=== PATIENT | male | born 1980 | race Caucasian/White ===

== ENCOUNTER 2025-04-06 16:20 | Emergency (ER) | payer OTHER, SELFPAY ==
--- OUTSIDE RECORDS SUMMARY | 2016-01-09 08:00 | XMS_ITS | Continuity of Care Document ---
Author Organization [facility] Address [address] [place] [address] Phone Care Team Providers Care Watershed Coordinator Name Role Phone Zelalem CALDWELL, Radha Unavailable Unavailable Allergies, Adverse Reactions, Alerts Substance Reaction Status Criticality No Known Allergies Active No Inform ation Medications Medication Instructions Dosage Effective Dates (start - stop) Status Comments Compazine 25 mg rectal suppository insert 1 suppository by rectal route every 6 hours as needed nausea - No Longer Active dicyclomine 10 mg capsule take 1 capsule by oral route 2- 3 times every day as needed cramps - No Longer Active Cymbalta 30 mg capsule,delayed release take 1 capsule by oral route every day 30 MG - No Longer Active Advance Directives Directive Yes / No Effective Date File Name No Information Encounters Encounter Description Practice Location Reason(s) For Visit Diagnoses Date Provider Providers Copied on Encounter [facility], [address], [place], [place], [id number] , tel: [phone] [facility] StressIrritable bowel syndrome with diarrhea 6 Zelalem Radha. [address] [address] , [facility] [address], [place], [place], [address] . tel: [phone] Referring Provider: Grayson Torres, [address] [place] [address] [address], [place], [address] . tel:[phone] [facility], [address], [place], [place], [address] , tel: [phone] [facility] Irritable bowel syndrome without diarrhea 6 Zelalem Radha. [address] [address] , [facility] [address], [place], [place], [address] . tel: [phone] Referring Provider: Grayson Torres, [id number] [place] [address] [address], [place], [address] . tel:[phone] [facility], [address], [place], [place], [address] , [place] tel: [phone] [facility] No Information Apr-2 6 Oedtte Cox. [address] [place] [address], [id number] , [place]. tel: [phone] [facility], [address], [place], [place], [id number] , [place] tel: [phone] [facility] Diarrhea Apr- 6 Odette Cox. [address] [place] [address], [id number] , [place]. tel: [phone] Referring Provider: Brooke Mercer, [address] [place] [address], [address] . tel:[phone] [facility], [address], [place], [place], [address] , [place] tel: [phone] [facility] Chronic diarrheaBlood in stoolGeneralized abdominal painNausea and vomiting, unspecified intactability, vomiting of unspecified typeDepression with anxiety Apr-0 6 Odette Cox. [address] [place] [address], [id number] , [place]. tel: [phone] Referring Provider: Brooke Mercer, [address] [place] [address], [address] . tel:[phone] [facility], [address], [place], [place], [address] , [place] tel: [phone] [facility] Irritable bowel syndrome with diarrheaNicotine dependence, other tobacco product, uncomplicatedGastr o-esophageal reflux disease with esophagitisAbdomin al pain, epigastricPersonal history of exposure to leadScreening for cholesterol levelAcute dermatitisCough Apr-0 6 Zelalem Garcia. [address] [place] [address], [address], [place], [place], [address] . tel: [phone] Referring Provider: Grayson Torres, [address] [facility] [address], [place], [address] . tel:[phone] [facility], [address], [place], [place], [address] , tel: [phone] [facility] BACKACHE NOSIRRITABLE BOWEL SYNDROME 4 Zainab Mccabe. [address] [facility], [address], [place], [place], [address] , . tel: [phone] Family History Family Member Type Diagnosis Age At Onset Brother Problem (finding) migraine Father Problem (finding) raised blood lipids Sister Problem (finding) Eczema Mother Problem (finding) Irritable bowel disease Mother Problem (finding) Allergies Mother Problem (finding) Hearing impairment Mother Problem (finding) hypertension Brother Problem (finding) Irritable bowel disease Sister Problem (finding) migraine Sister Problem (finding) depression Mother Problem (finding) raised blood lipids Sister Problem (finding) Allergies Father Problem (finding) hypertension Sister Problem (finding) asthma Mother Problem (finding) osteoporosis Father Problem (finding) Hearing impairment Sister Problem (finding) Irritable bowel disease Father Problem (finding) premature coronary hear t disease Brother Problem (finding) Hearing impairment Mother Problem (finding) depression Payers Payer name Insurance type Covered constitution party ID Najma stephenson(s) [facility] [id number] Social History Type Description Quantity Date Captured Comments Alcohol Use Details No Caffeine Use Details coffee 3 cups per day Tobacco Use Status Smoking Status Heavy tobacco smoker Sex Male Vital Signs Date / Time: Height Weight BMI Pulse Rate Blood Pressure Temperature Respiratory Rate Body Surface Area Head Circumference Head Circ. Percentile Wt./Benjy. Percentile BMI percentile Pulse Ox Inhaled Ox 12:48 PM 68.674 kg (151.40 lbs) 100 /min 130/72 mm[Hg] 99.50 F Chief Complaint And Reason For Visit No Information Reason For Referral Reason For Referral No Information Plan Of Treatment Date Type Action Status Patient Education Diet for Irritable Monse l Syndrome: Car completed History Of Present Illness Encounter Date Complaint History Of Prese nt Illness No Information Functional Status Date Functional Assessmen t No Information Instructions Date Instruction Additional Infor mation No Information Assessments Type Assessment Date No Information Patient Care Teams Name Effective Dates (start - stop) Status Members No Information
--- OUTSIDE RECORDS SUMMARY | 2016-01-09 08:00 | XMS_ITS | Continuity of Care Document ---
Author Organization [facility] Address [address] [place] [address] Phone Care Team Providers Care Field Artillery Targeting Technician Name Role Phone Zelalem CALDWELL, Radha Unavailable [...] Diagnoses Date Provider Providers Copied on Encounter [facility], [address], [place], [place], [address] , tel: [phone] [facility] StressIrritable bowel syndrome with diarrhea 6 Zelalem Radha. [address] [address] , [facility] [address], [place], [place], [address] . tel: [phone] Referring Provider: Grayson Torres, [address] [place] [address] [address], [place], [address] . tel:[phone] [facility], [address], [place], [place], [address] , tel: [phone] [facility] Irritable bowel syndrome without diarrhea 6 Zelalem Radha. [address] [address] , [facility] [address], [place], [place], [address] . tel: [phone] Referring Provider: Grayson Torres, [address] [place] [address] [address], [place], [address] . tel:[phone] [facility], [address], [place], [place], [address] , [place] tel: [phone] [facility] No Information Apr-2 6 Odette Cox. [address] [place] [address], [id number] , [place]. tel: [phone] [facility], [address], [place], [place], [address] , [place] tel: [phone] [facility] Diarrhea Apr- 6 Odette Cox. [address] [place] [address], [id number] , [place]. tel: [phone] Referring Provider: Brooke Mercer, [address] [place] [address], [address] . tel:[phone] [facility], [address], [place], [place], [address] , [place] tel: [phone] [facility] Chronic diarrheaBlood in stoolGeneralized abdominal painNausea and vomiting, unspecified intactability, vomiting of unspecified typeDepression with anxiety Apr-0 6 Odette Cox. [address] [place] [address], [id number] , [place]. tel: [phone] Referring Provider: Brooke Mercer, [address] [place] [address], [address] . tel:[phone] [facility], [address], [place], [place], [address] , [place] tel: [phone] [facility] Irritable bowel syndrome with diarrheaNicotine dependence, other tobacco product, uncomplicatedGastr o-esophageal reflux disease with esophagitisAbdomin al pain, epigastricPersonal history of exposure to leadScreening for cholesterol levelAcute dermatitisCough Apr-0 6 Zelalem Garcia. [address] [place] [address], [address], [place], [place], [address] . tel: [phone] Referring Provider: Grayson Torres, [address] [facility] [address], [place], [address] . tel:[phone] [facility], [address], [place], [place], [address] , tel: [phone] [facility] BACKACHE NOSIRRITABLE BOWEL SYNDROME 4 Zainab Mccabe. [address] [facility], [address], [place], [place], [address] , . tel: [phone] Family History Family Member Type Diagnosis Age [...] depression Payers Payer name Insurance type Covered green party ID Najma stephenson(s) [facility] [id number] Social History Type Description Quantity Date Captured [...]
[2025-04-06 16:31] VITALS: BP 158/105; PULSE 95; RESP 18; TEMP 36.9; O2SAT 100
--- NOTE | 2025-04-06 17:14 | ED_ITS ---
HPI - General Adult General Chief complaint: Eye Problems Stated complaint: Right Eye Problem Source: patient Mode of arrival: ambulatory Limitations: no limitations History of Present Illness HPI narrative: Patient presents for evaluation of a stye to the right lower eyelid. He indicates he accidentally got latex paint his right eye 2 days ago. He was able to irrigate the eye but developed a stye thereafter. He has been rubbing the eye and now has some swelling and bruising to the right lower lid. He denies visual disturbance and sensation of foreign body in the eye. He has noted some thick yellow discharge from the stye. He has applied warm compresses but states symptoms persist. Related Data Home Medications ?Medication ?Instructions ?Recorded ?Confirmed ?Last Taken ?Type dicyclomine 20 mg tablet mg 04/06/25 Unknown History docusate sodium 250 mg capsule mg PO 04/06/25 Unknown History folic acid 1 mg tablet 04/06/25 Unknown History metoprolol succinate 50 mg mg PO 04/06/25 Unknown His tory tablet,extended release 24 hr tramadol 50 mg tablet mg 04/06/25 Unknown History Allergies Allergy/AdvReac Type Severity Reaction Status Date / Time No Known Allergies Allergy Verified 04/06/25 16:32 Review of Systems Review of Systems: CONSTITUTIONAL: Denies fever, chills, or sweats. EYES: Reports swelling to right lower lid with thick yellow drainage. Denies visual changes, redness ENT: Denies rhinorrhea, congestion, sore throat, or otalgia. CARDIOVASCULAR: Denies chest pain, palpitations, or edema. RESPIRATORY: Denies cough or dyspnea. GASTROINTESTINAL: Denies abdominal pain, nausea, vomiting, or diarrhea. GENITOURINARY: Denies dysuria or hematuria. SKIN: Reports bruising to the right lower eyelid MUSCULOSKELETAL: Denies back pain, joint pain, or myalgia. NEUROLOGIC: Denies headache, numbness, dizziness, or weakness. PSYCHIATRIC: Denies anxiety or depression. [facility] Past Medical History Medical History No pertinent past medical history Surgical History Surgical History No pertinent past surgical history Family History Family History Mother Family history non-contributory Social History Social History Smoking packs per day: 1.5 Smoking cigarettes per day: 30.0 Smoking status: Current every day smoker Tobacco type: cigarettes Alcohol intake: current Alcohol use details: 4 drinks per day Additional occupation/education comments: furnace mechanic Gender identity (if verbalized by the patient): Male Spiritual care concerns: No Exam Narrative: GENERAL: Well-appearing, well-nourished, and in no acute distress. HEAD: Normocephalic, atraumatic. EYES: PERRLA and EOMI. There is a stye noted to the inner aspect of the right lower eyelid ENT: Nares clear, no rhinorrhea or epistaxis. Mucous membranes moist. Oropharynx without tonsillar hypertrophy exudate or other lesions. Bilateral TMs pearly morrow nonbulging NECK: Supple. No adenopathy or masses. No carotid bruits or JVD CHEST: Clear to auscultation. No respiratory distress. No wheezes rales or rhonchi HEART: Regular rate and rhythm. No murmur heard. Normal peripheral pulses. ABDOMEN: Soft, nontender, nondistended, normal active bowel sounds. EXTREMITIES: Normal range of motion. No edema. SKIN: There is mild ecchymosis noted to the right lower eyelid NEURO: No focal deficits. Alert and oriented x3. PSYCH: Normal mood and affect. Course Course Emergency Course: This is a 44-year-old male who presented for evaluation of a stye to the right lower inner eyelid. He is already applying warm compresses. Will add erythromycin. Follow-up with primary provider. Go to the ER for worsening symptoms or visual disturbance. Patient in agreement with plan of care. Level of Care: Express Care Visit Vital Signs Vital signs: Vital Signs Temperature 36.9 C 04/06/25 16:31 Pulse Rate 95 04/06/25 16:31 Respiratory Rate 18 04/06/25 16:31 Blood Pressure 158/105 H 04/06/25 16:31 Pulse Oximetry 100 04/06/25 16:31 Oxygen Delivery Room Air 04/06/25 16:31 Temperature 36.9 C 04/06/25 16:31 Pulse Rate 95 04/06/25 16:31 Respiratory Rate 18 04/06/25 16:31 Blood Pressure 158/105 H 04/06/25 16:31 Pulse Oximetry 100 04/06/25 16:31 Oxygen Delivery Room Air 04/06/25 16:31 Medical Decision Making Vital Signs Vital Signs: Vital Signs Temperature 36.9 C 04/06/25 16:31 Pulse Rate 95 04/06/25 16:31 Respiratory Rate 18 04/06/25 16:31 Blood Pressure 158/105 H 04/06/25 16:31 Pulse Oximetry 100 04/06/25 16:31 Oxygen Delivery Room Air 04/06/25 16:31 Temperature 36.9 C 04/06/25 16:31 Pulse Rate 95 04/06/25 16:31 Respiratory Rate 18 04/06/25 16:31 Blood Pressure 158/105 H 04/06/25 16:31 Pulse Oximetry 100 04/06/25 16:31 Oxygen Delivery Room Air 04/06/25 16:31 Discharge Plan Discharge Clinical Impression: Hordeolum Qualifiers: Hordeolum type: internum Laterality: right Eyelid: lower Qualified Code(s): H00.022 - Hordeolum internum right lower eyelid Patient Disposition: Home Condition: Stable Instructions: Antibiotic Kelly Allan (ED) Patient Language: Polish Prescriptions: New erythromycin 5 mg/gram (0.5 %) ointment 0.5 inch EACH EYE QID Qty: 3.5 0RF No Action metoprolol succinate 50 mg tablet extended release 24 hr PO tramadol 50 mg tablet dicyclomine 20 mg tablet folic acid 1 mg tablet docusate sodium 250 mg capsule PO Follow-up/Referrals: Mick,Reji Wilson MD [Primary Care Provider, Unknown] Time of Disposition: 17:13
--- OUTSIDE RECORDS SUMMARY | 2025-04-06 17:17 | XMS_ITS | Encounter Summary ---
Author Organization [facility] [employer] Care Team Providers Care Environmental Director Name Role Phone Reji Barton MD Primary Care Provider [phone] Eddi Miller MD Unavailable Bridger Gilliam MD Unavailable Encounter Details Date Type Department Care Team (Latest Contact Info) Description 04/05/2025 Travel Social History Tobacco Use Types Packs/Day Years Used Date Smoking Tobacco: Every Day Cigarettes 1.5 31.7 Started: 1993 Smokeless Tobacco: Never Alcohol Use Standard Drinks/Week Comments Yes 70 (1 standard drink = 0.6 oz pu re alcohol) [employer] [facility] LOAGities Answer Date Recorded In the past 12 months has e electric, gas, oil, or water company threatened to shut off services in your home? No 02/19/2024 Social Connection and Isolation Panel Answer Date Recorded In a typical week, how many times do you talk on the phone with family, friends, or neighbors? More than three times a week 02/19/2024 How often do you get togethe r with friends or relatives? Twice a week 02/19/2024 How often do you attend chur ch or nondenominational services? Never 02/19/2024 Do you belong to any clubs o r organizations such as nondenominational groups, unions, fraternal or athletic groups, or school groups? No 02/19/2024 How often do you attend meet ings of the clubs or organizations you belong to? Never 02/19/2024 Are you , , di vorced, , never , or living with a partner? Living with partner 02/19/2024 AUDIT-C Answer Date Recorded Q1: How often do you have a drink containing alcohol? 4 or more times a week 02/19/2024 Q2: How many drinks containi ng alcohol do you have on a typical day when you are drinking? 7 to 9 Q3: How often do you have si x or more drinks on one occasion? Daily or almost daily 02/19/2024 Overall Financial Resource Strain (CARDIA) Answe r Date Recorded How hard is it for you to pa y for the very basics like food, housing, medical care, and heating? Somewhat hard 02/19/2024 PHQ-2 Answer Date Recorded Total Score - Questions 1-9 0 12/27 [facility] - Occupational Stress Questionnaire Answer Date Recorded Do you feel stress - tense, restless, nervous, or anxious, or unable to sleep at night because your mind is troubled all the time - these days? Rather much 02/19/2024 Exercise Vital Sign Answer Date Recorde d On average, how many days pe r week do you engage in moderate to strenuous exercise (like a brisk walk)? 3 days Minutes of Exercise per Session Not on file 02/19/2024 Hunger Vital Sign Answer Date Recorded Within the past 12 months, y ou worried that your food would run out before you got the money to buy more. Never true 02/19/20 Within the past 12 months, t he food you bought just didn't last and you didn't have money to get more. Never true 02/19/2024 PRAPARE - Transportation Answer Date Re corded In the past 12 months, has l ack of transportation kept you from medical appointments or from getting medications? No 01/27 In the past 12 months, has l ack of transportation kept you from meetings, work, or from getting things needed for daily living? No 02/19/2024 Housing Stability Vital Sign Answer Karlo e Recorded In the last 12 months, was t here a time when you were not able to pay the mortgage or rent on time? No 02/19/2024 In the past 12 months, how m any times have you moved where you were living? 0 02/19/2024 At any time in the past 12 m [facility], were you homeless or living in a group home (including now)? No 02/19/2024 Sexually Active Control Partners Comments Yes Female Sex and Gender Information Value Date Recorded Sex Assigned at Not on file Legal Sex Male 11:51 PM CDT Gender Identity Not on file Sexual Orientation Not on file documented as of this encounter Plan of Treatment Upcoming Encounters Date Type Department Care Team (Late st Contact Info) Description 04/12/2025 10:00 AM CDT [facility] [address] [place] [address] Discharge Disposition: Discharged to home or Selfcare 05/07/2025 8:00 AM CDT Office Visit [facility] - Family [facility] [address] [place] [address] Caren Kwok, BATON TEACHER, HAND PRESSER [address] [place] [address] 06/10/2025 10:00 AM ART OBJECTS SUPERVISOR Office Visit [facility] [address] [place] [address] Negar Vasquez, [facility] [address] [place] [address] Discharge Disposition: Discharged to home or Selfcare documented as of this encounter Visit Diagnoses Not on filedocumented in this encounter Additional Health Concerns Assessment Noted Time PHQ-9 Depression Total Score: 0 01/14/20 25 11:14 AM CDT documented as of this encounter Care Teams Environmental Director Relationship Specialty Start Date End Date Reji Barton MD [address] [facility] [address] [place] [address] PCP - General Family Medicine 02/19/24 Eddi Miller MD [address] [facility] [address] [place] [address] Consulting Physician Colon and Rectal Surgery 06/22/24 Bridger Gilliam MD [address] [address] Consulting Physician General Surgery 12/30/24 documented as of this encounter
--- OUTSIDE RECORDS SUMMARY | 2025-04-06 17:17 | XMS_ITS | Clinical Summary ---
Author Organization [facility] Address [address] [place] [address] Care Team Providers Care Cartridge Maker Name Role Phone Unknown, Notinfile Primary Care Provider Unavail able Allergies No known active allergies Medications ibuprofen (ADVIL,MOTRIN) 600 mg tablet Take 1 tablet (600 mg total) by mouth 4 (four) times a day as needed for pain Take with food. 30 tablet 9 Active ondansetron ODT (ZOFRAN-ODT) 4 mg disintegrating tablet Dissolve 1 tablet for mild to moderate nausea or vomiting or 2 tablets for severe nausea or vomiting oral twice a day as needed. 15 tablet 9 Active tamsulosin (FLOMAX) 0.4 mg extended release capsule Take 1 capsule (0.4 mg total) by mouth daily for 6 doses 12 capsule 9 Active dicyclomine (BENTYL) 20 mg tablet Take 1 tablet (20 mg total) by mouth 2 (two) times a day 60 tablet 5 04/24/20 25 Active prochlorperazine (COMPAZINE) 10 mg tabletIndications:N ausea and Vomiting Take 1 tablet (10 mg total) by mouth 2 (two) times a day as needed for nausea or vomiting 20 tablet 5 Active docusate sodium (COLACE) 250 mg capsule Take 1 capsule (250 mg total) by mouth daily 30 capsule 5 04/24/20 25 Active Active Problems Problem Noted Date Diagnosed Date Depression with anxiety 05/16/2019 Gastro-esophageal reflux disease with esophagiti s 11/03/2015 Irritable bowel syndrome 01/25/2004 Encounters Date Type Department Care Team Description 03/25/2025 11:45 AM CDT - 03/25/2025 4:[address] [facility] Emergency Department [address] [place] [address] Marbin Danielle MD Abdominal pain (Primary Dx); Diverticulosis Discharge Disposition: Discharge to home or self care 01/06/2025 7:58 PM CDT - 01/06/2025 11:59 PM CDT Hospital Encounter [facility] Emergency, Room R Discharge Disposition: Discharge to home or self care from Last 3 Months Medical History Medical History Date Comments IBS (irritable bowel syndrome) Back pain Migraine Social History Tobacco Use Types Packs/Day Years Used Date Smoking Tobacco: Every Day Cigarettes Smokeless Tobacco: Never Alcohol Use Standard Drinks/Week Comments Yes 0 (1 standard drink = 0.6 oz pur e alcohol) 1 pt vodka daily Personal Safety Answer Date Recorded Have you ever been in or are you currently in a harmful physical or emotional relationship or is someone making you feel afraid or unsafe? Denies 03/25/2025 Sex and Gender Information Value Date Recorded Sex Assigned at Not on file Legal Sex Male 6:39 PM JOINT CUTTER Gender Identity Not on file Sexual Orientation Not on file Obstetrics History Last Filed Vital Signs Vital Sign Reading Time Taken Comments Blood Pressure 120/86 03/25/2025 1:24 PM CDT Pulse 83 03/25/2025 1:24 PM CDT Temperature 36.7 C (98 F) 03/25/2025 11:09 AM CDT Respiratory Rate 18 03/25/2025 1:24 PM CDT Oxygen Saturation 99% 03/25/2025 1:24 PM CDT Inhaled Oxygen Concentration - - Weight 59 kg (130 lb) 03/25/2025 11:09 AM CDT Height 165.1 cm (5' 5) 03/25/2025 11:09 AM CDT Body Mass Index 21.63 03/25/2025 11:09 AM CDT Plan of Treatment Health Maintenance Due Date Last Done Comments Depression Screening 1982 Hepatitis C Screening 1982 Varicella Vaccines (1 of 2 - 13+ 2-dose series) 1995 DTaP/Tdap/Td Vaccine (6 - Tdap) 08/27/1998 08/26/1998, 03/23/1988, 07/04/1984, Additional history exists Regular Well Visit/Exam 18-64 2000 Pneumococcal vaccine <65 (1 of 2 - PCV) 2001 HPV Vaccines (1 - 3-dose SCD M series) 2009 Influenza Vaccine (#1) 2025 Hepatitis B Screening Completed 05/16/1999 , 10/26/1998, 08/26/1998 Procedures Procedure Name Priority Date/Time Associated Diagnosis Comments CT ABDOMEN PELVIS W CONTRAST ED 03/25/2025 1:23 PM CDT URINALYSIS AND REFLEX TO MICROSCOPIC AND CULTURE STAT 03/25/2025 12:22 PM CDT EGFR STAT 03/25/2025 12:16 PM CDT DIFFERENTIAL AUTO STAT 03/25/2025 12: 16 PM CDT LIPASE STAT 03/25/2025 12:16 PM CDT COMPREHENSIVE METABOLIC PANEL STAT 03/25/2025 12:16 PM CDT CBC WITH AUTO DIFFERENTIAL STAT 03/25/2025 12:16 PM CDT from Last 3 Months Results * CT Abdomen Pelvis W Contrast (03/25/2025 1:23 PM CDT) Anatomical Region Laterality Modality Body N/A Computed Tomogra phy 03/25/2025 3:24 PM CDT Impressions 03/25/2025 3:28 PM CDT 1. Colonic diverticulosis without diverticulitis. The appearance of wall thickening of the proximal sigmoid colon is without mesenteric edema or adjacent fat stranding and is favored to represent under distention versus colitis. Recommend correlation with history of diarrhea. 2. Otherwise, no acute abnormality in the abdomen or pelvis to explain patient's symptoms. Dictated by: Gaurav Carranza M.D. The radiology attending physician has personally reviewed this study, and had reviewed and/or edited this written report and agrees with it. Electronically signed by: Daron Moreira M.D. Narrative 03/25/2025 3:28 PM CDT EXAMINATION: Computed tomography of the abdomen and pelvis with intravenous contrast HISTORY: 44-year-old male presenting for abdominal pain that has been going on for months. Complains of vomiting and diarrhea. TECHNIQUE: Transaxial computed tomographic images of the abdomen and pelvis were obtained with intravenous contrast according to the standard protocol after the uneventful administration of 69 mL Opti-Ray 350 intravenous contrast. COMPARISON: CT 05/16/2019 FINDINGS: The visualized lung bases are clear. The visualized heart is normal in size without visualized pericardial effusion. The visualized thoracic aorta is normal in caliber. Normal liver size and contour. No suspicious liver lesions. There is no intrahepatic or extrahepatic biliary ductal dilation. Normal gallbladder. Normal pancreas, spleen, adrenal glands. The kidneys enhance symmetrically without hydronephrosis. The urinary bladder is partially decompressed. Normal prostate and seminal vesicles. The distal esophagus, stomach, and duodenal sweep are normal. Normal caliber of the small intestine and colon. There is mild wall thickening of the proximal sigmoid colon, although it is underdistended. There is no formed stool. Colonic diverticulosis without diverticulitis. The terminal ileum and appendix are normal. No organizing fluid collection. No ascites. No pneumoperitoneum. The IVC is normal in caliber. The portal vein, splenic vein, and superior mesenteric vein are patent. The abdominal aorta is normal in caliber with scattered atherosclerotic calcifications. The celiac axis, superior mesenteric artery, and inferior mesenteric artery are patent. No suspicious abdominal or pelvic lymphadenopathy. No soft tissue abnormalities. No aggressive osseous lesion. Procedure Note Daron Moreira MD - 03/25/2025 EXAMINATION: Computed tomography of the abdomen and pelvis with intravenous contrast HISTORY: 44-year-old male presenting for abdominal pain that has been going on for months. Complains of vomiting and diarrhea. TECHNIQUE: Transaxial computed tomographic images of the abdomen and pelvis were obtained with intravenous contrast according to the standard protocol after the uneventful administration of 69 mL Opti-Ray 350 intravenous contrast. COMPARISON: CT 05/16/2019 FINDINGS: The visualized lung bases are clear. The visualized heart is normal in size without visualized pericardial effusion. The visualized thoracic aorta is normal in caliber. Normal liver size and contour. No suspicious liver lesions. There is no intrahepatic or extrahepatic biliary ductal dilation. Normal gallbladder. Normal pancreas, spleen, adrenal glands. The kidneys enhance symmetrically without hydronephrosis. The urinary bladder is partially decompressed. Normal prostate and seminal vesicles. The distal esophagus, stomach, and duodenal sweep are normal. Normal caliber of the small intestine and colon. There is mild wall thickening of the proximal sigmoid colon, although it is underdistended. There is no formed stool. Colonic diverticulosis without diverticulitis. The terminal ileum and appendix are normal. No organizing fluid collection. No ascites. No pneumoperitoneum. The IVC is normal in caliber. The portal vein, splenic vein, and superior mesenteric vein are patent. The abdominal aorta is normal in caliber with scattered atherosclerotic calcifications. The celiac axis, superior mesenteric artery, and inferior mesenteric artery are patent. No suspicious abdominal or pelvic lymphadenopathy. No soft tissue abnormalities. No aggressive osseous lesion. IMPRESSION: 1. Colonic diverticulosis without diverticulitis. The appearance of wall thickening of the proximal sigmoid colon is without mesenteric edema or adjacent fat stranding and is favored to represent under distention versus colitis. Recommend correlation with history of diarrhea. 2. Otherwise, no acute abnormality in the abdomen or pelvis to explain patient's symptoms. Dictated by: Gaurav Carranza M.D. The radiology attending physician has personally reviewed this study, and had reviewed and/or edited this written report and agrees with it. Electronically signed by: Daron Moreira M.D. Amberly Powell MD IM CT PROCEDURES Final Result * (ABNORMAL) Urinalysis reflex to microscopic and culture Urine (03/25/2025 12:22 PM CDT) Color, ur Yellow Yellow Clarity, ur Turbid(A) Clear [facility] Specific gravity, ur 1.025 1.003 - 1.030 [facility] pH, urine 6.5 [facility] Comment: Interpretive Data U rine pH is affected by diet, medications, systemic acid-base disturbances, and renal tubular function. pH may affect urinary stone formation. For example, urine pH below 6.0 may help reduce the tendency for calcium phosphate stones and pH greater than 6.0 may reduce the tendency for uric acid stone formation. Source: [employer] Current Interpretive Data was last revised on 2017 Protein, ur ql Trace Negative [facility] Glucose, ur ql Negative Negative [facility] Ketones, ur Negative Negative [facility] Bilirubin, ur Negative Negative [facility] Blood, ur Negative Negative [facility] Urobilinogen, ur <2.0 <2.0 mg/dL [facility] Nitrite, ur Negative Negative [facility] Leukocyte esterase, ur Negative Negative [facility] UA reflex comment Reflex conditions for microscopic UA and culture not met. [facility] Urine 03/25/2025 12:2 2 PM CDT 03/25/2025 12:28 PM CDT us Amberly Powell MD LAB MICROBIOLOGY - GENER AL ORDERABLES Final Result [facility] Department [place] [address] * eGFR (03/25/2025 12:16 PM CDT) eGFR >90 >=60 mL/min/1. 73 m2 Comment: Interpretive Data Reference Interval Normal >/= 90 mL/min/1.73m2 Mildly decreased* 60 - 89 mL/min/1.73m2 Mildly to moderately decreased 45 - 59 mL/min/1.73m2 Moderately to severely decreased 30 - 44 mL/min/1.73m2 Severely decreased 15 - 29 mL/min/1.73m2 Kidney Failure < 15 mL/min/1.73m2 *Relative to young adult level Estimated glomerular filtration rate is determined by the 2020 CKD-EPI equation recommended by the National Kidney Foundation (A Unifying Approach to GFR Estimation: Recommendations of the NKF-ASK Task Force on Reassessing the Inclusion of Race in Diagnosing Kidney Disease, JASN 2020). The CKD-EPI equation should not be used for patients with unstable renal function and has not been validated in children and those over 70. Current interpretive data was last reviewed 2021. Blood 03/25/2025 12:1 6 PM CDT 03/25/2025 12:27 PM CDT us Amberly Powell MD LAB BLOOD ORDERABLES Fin al Result [facility] Department [place] [address] * (ABNORMAL) Differential, auto (03/25/2025 12:16 PM CDT) Neutrophil abs 3.22 1.50 - 6.50 K/cumm Imm gran abs 0.02 0.00 - 0.10 K/cumm [facility] Lymphocyte abs 1.64 0.80 - 3.30 K/cumm [facility] Monocyte abs 0.44 0.20 - 0.80 K/cumm [facility] Eosinophil abs 0.18 0.00 - 0.50 K/cumm [facility] Basophil abs 0.13(H) 0.00 - 0.10 K/cumm [facility] Neutrophil pct 57.2 % [facility] Comment: Interpretive Data Percent cell count reference ranges are not reported, since discordance with absolute values may lead to misinterpretation of CBC data. Current Interpretive Data was last revised on 2017. Imm gran pct 0.4 % [facility] Comment: Interpretive Data Percent cell count reference ranges are not reported, since discordance with absolute values may lead to misinterpretation of CBC data. Current Interpretive Data was last revised on 2017. Lymphocyte pct 29.1 % [facility] Comment: Interpretive Data Percent cell count reference ranges are not reported, since discordance with absolute values may lead to misinterpretation of CBC data. Current Interpretive Data was last revised on 2017. Monocyte pct 7.8 % [facility] Comment: Interpretive Data Percent cell count reference ranges are not reported, since discordance with absolute values may lead to misinterpretation of CBC data. Current Interpretive Data was last revised on 2017. Eosinophil pct 3.2 % [facility] Comment: Interpretive Data Percent cell count reference ranges are not reported, since discordance with absolute values may lead to misinterpretation of CBC data. Current Interpretive Data was last revised on 2017. Basophil pct 2.3 % [facility] Comment: Interpretive Data Percent cell count reference ranges are not reported, since discordance with absolute values may lead to misinterpretation of CBC data. Current Interpretive Data was last revised on 2017. Blood 03/25/2025 12:1 6 PM CDT 03/25/2025 12:27 PM CDT Amberly Powell MD LAB BLOOD ORDERABLES Fin al Result Performing Organization Address [facility] Co de Phone Number [facility] [place] [address] * (ABNORMAL) CBC with auto differential (03/25/2025 12:16 PM CDT) WBC 5.63 3.80 - 9.90 K/cumm Hgb 10.2(L) 13.0 - 17.5 g/dL [facility] Hct 33.5(L) 38.9 - 50.3 % [facility] Plt 292 150 - 400 K/cumm [facility] MPV 9.8 9.1 - 12.3 fL [facility] RBC 3.85(L) 4.30 - 5.80 M/cumm [facility] MCV 87.0 81.3 - 96.4 fL [facility] MCH 26.5(L) 27.1 - 33.3 pg [facility] MCHC 30.4(L) 32.3 - 35.7 g/dL [facility] RDW CV 22.8(H) 11.1 - 14.9 % [facility] RDW SD 72.1(H) 35.7 - 48.1 fL [facility] NRBC abs 0.00 0.00 - 0.01 K/cumm [facility] Blood 03/25/2025 12:1 6 PM CDT 03/25/2025 12:27 PM CDT Amberly Powell MD LAB BLOOD ORDERABLES Fin al Result Performing Organization Address [facility] Co de Phone Number [facility] [place] [address] * Lipase (03/25/2025 12:16 PM CDT) Lipase 25 10 - 99 Units/L Blood 03/25/2025 12:1 6 PM CDT 03/25/2025 12:27 PM CDT Amberly Powell MD LAB BLOOD ORDERABLES Fin al Result [facility] Department [place] [address] * (ABNORMAL) Comprehensive metabolic panel (03/25/2025 12:16 PM CDT) Pathologist [facility] Sodium 142 135 - 145 mmol/L Potassium, pl 4.0 3.3 - 4.9 mmol/L [facility] Chloride 107 97 - 110 mmol/L [facility] CO2 25 22 - 32 mmol/L [facility] Anion gap 10 2 - 15 mmol/L [facility] BUN 7 6 - 25 mg/dL [facility] Creatinine 0.81 0.80 - 1.30 mg/dL [facility] Glucose 89 70 - 199 mg/dL [facility] Comment: Interpretive Data Fasting glucose >/= 126 mg/dl is diagnostic for diabetes. Fasting is defined as no caloric intake for at least 8 hours. Fasting glucose between 100 mg/dl to 125 mg/dl is diagnostic of prediabetes. In a patient with classic symptoms of hyperglycemia or hyperglycemic crisis, a random glucose >/= 200 mg/dl is diagnostic for diabetes. In the absence of unequivocal hyperglycemia, results should be confirmed by repeat testing. The classification and Diagnosis of Diabetes Diabetes Care 202; 46: S19-S40. Current interpretive data was last revised 2022. Calcium 8.0(L) 8.5 - 10.3 mg/dL [facility] Bilirubin, total 0.3 0.1 - 1.2 mg/dL [facility] Protein, pl 6.3(L) 6.5 - 8.5 g/dL [facility] Albumin 3.6 3.5 - 5.0 g/dL [facility] Alk phos 125 40 - 130 Units/L [facility] ALT 23 7 - 55 Units/L [facility] AST 44 10 - 50 Units/L [facility] Blood 03/25/2025 12:1 6 PM CDT 03/25/2025 12:27 PM CDT us Amberly Powell MD LAB BLOOD ORDERABLES Fin al Result [facility] Department [place] [address] from Last 3 Months Insurance [facility] CHO[facility] PLUS [facility] CHO[facility] PLUS Care Teams Cartridge Maker Relationship Specialty Start Date End Date Unknown, Notinfile PCP - General 03/25/25
--- OUTSIDE RECORDS SUMMARY | 2025-04-06 17:17 | XMS_ITS | Encounter Summary ---
Author Organization [facility] Address [address] [facility] [place] [address] Phone Care Team Providers Care Tank Processor Name Role Phone Reji Barton MD Primary Care Provider [phone] Eddi Miller MD Unavailable Bridger Gilliam MD Unavailable [phone] Encounter Details Date Type Department Care Team (Latest Contact Info) Description 03/02/2025 Results Follow-Up [facility] Oncology Services [address] [place] [address] Negar Vasquez Hilda, PAC [address] [place] [address] RETICULOCYTE COUNT (RETIC), CBC WITH AUTO DIFFERENTIAL, FOLIC ACID (FOLATE), Additional followed-up results: 7 Social History Tobacco Use Types Packs/Day Years Used Date Smoking Tobacco: Every Day Cigarettes 1.5 31.7 Started: 1993 Smokeless Tobacco: Never Alcohol Use Standard Drinks/Week Comments Yes 70 (1 standard drink = 0.6 oz pu re alcohol) [facility]sanissandeep [facility] Utilities Answer Date Recorded In the past 12 months has [employer] electric, gas, oil, or water company threatened [...] often do you attend chur ch or hinduism services? Never 02/19/2024 Do you belong to any clubs o r organizations such as evangelical groups, unions, fraternal or athletic groups, or [...] Total Score - Questions 1-9 0 12/27 [facility] - Occupational Stress Questionnaire Answer Date [...] money to buy more. Never true 02/19/20 24 Within the past 12 months, t he [...] any time in the past 12 m [facility], were you homeless or living in a snf (including now)? No 02/19/2024 Sexually Active Control Partners Comments Yes Female Sex and Gender Information Value Date Recorded Sex Assigned at Not on file Legal Sex Male 11:51 PM CDT Gender Identity Not on file Sexual Orientation Not on file documented as of this encounter Progress Notes * Negar Vasquez PAC - 03/04/2025 7:14 AM CDT Iron sat and ferritin low- recommend venofer 300 mg x 4 infusions * Negar Vasquez PAC - 03/02/2025 4:27 PM CDT Hemoglobin has declined to 8.2, please evaluate for any new symptoms. Please verify he is still taking his iron supplement. documented in this encounter Plan of Treatment Upcoming Encounters Date Type Department Care Team (Late st Contact Info) Description 04/12/2025 10:00 AM CDT Clinical Support [facility] Oncology Services [address] [place] [address] Discharge Disposition: Discharged to home or Selfcare 05/07/2025 8:00 AM CDT Office Visit [facility] [address] [place] [address] Caren Kwok, SYSTEM CONFIGURATION SPECIALIST, [employer] [facility] [address] [place] [address] 06/10/2025 10:00 AM ASSISTANT DIRECTOR OF PLANT OPERATIONS Office Visit [facility] Oncology Services [address] [place] [phone] Negar Vasquez, PAC [address] [place] [address] Discharge Disposition: Discharged to home or Selfcare documented as of this encounter Visit Diagnoses Not on filedocumented in this encounter Additional Health Concerns Assessment Noted Time PHQ-9 Depression Total Score: 0 01/14/20 11:14 AM CDT documented as of this encounter Care Teams Tank Processor Relationship Specialty Start Date End Date Reji Barton MD [address] [facility] [address] [place] [address] PCP - General Family Medicine 02/19/24 Eddi Miller MD [address] [facility] [address] [place] [address] Consulting Physician Colon and Rectal Surgery 06/22/24 Bridger Gilliam MD 2 [facility] [address] [place] [address] Consulting Physician General Surgery 12/30/24 documented as of this encounter
--- OUTSIDE RECORDS SUMMARY | 2025-04-06 17:17 | XMS_ITS | Encounter Summary ---
Author Organization [facility] Address [address] [place] [address] Phone Care Team Providers Care Barber Or Beauty Shop Manager Name Role Phone Reji Barton MD Primary Care Provider [phone] Eddi Miller MD Unavailable Bridger Gilliam MD Unavailable [phone] Reason for Visit * Reason Onset Date Comments Medication Refill 04/05/2025 Encounter Details Date Type Department Care Team (Late st Contact Info) Description 04/05/2025 Refill [facility] - [facility] [address] [place] [address] Reji Barton MD [address] [address] Medication Refill Social History Tobacco Use Types Packs/Day Years Used Date Smoking Tobacco: Every Day Cigarettes 1.5 31.7 Started: 1993 Smokeless Tobacco: Never Alcohol Use Standard Drinks/Week Comments Yes 70 (1 standard drink = 0.6 oz pu re alcohol) [facility] Utilities Answer Date Recorded In the past 12 months has [employer] electric, gas, oil, or water company threatened [...] often do you attend chur ch or congregational services? Never 02/19/2024 Do you belong to any clubs o r organizations such as adventist groups, unions, fraternal or athletic groups, or [...] Total Score - Questions 1-9 0 12/27 [facility] - Occupational Stress Questionnaire Answer Date Recorded [...] any time in the past 12 m [facility], were you homeless or living in a long term (including now)? No 02/19/2024 Sexually Active Control Partners Comments Yes Female Sex and Gender Information Value Date Recorded Sex Assigned at Not on file Legal Sex Male 11:51 PM CDT Gender Identity Not on file Sexual Orientation Not on file documented as of this encounter Miscellaneous Notes * Telephone Encounter - Ann Lowe RN - 04/06/2025 9:47 AM CDT Images from the original note were not included. Metoprolol Succinate Dispensed Days Supply Quantity Provider Pharmacy METOPROLOL ER SUCCINATE 50MG TABS 03/27/2025 90 90 Each Reji Barton MD [facility] #... METOPROLOL ER SUCCINATE 50MG TABS 12/20/2024 90 90 Each Reji Barton MD [facility] #... * Telephone Encounter - Nayla Bass MA - 04/05/2025 2:42 PM CDT Heather Advance refill fax request: Metoprolol Er Succinate 50 mg tabs documented in this encounter Plan of Treatment Upcoming Encounters Date Type Department Care Team (Late st Contact Info) Description 04/12/2025 10:00 AM CDT Clinical Support [facility] [address] [place] [phone] Discharge Disposition: Discharged to home or Selfcare 05/07/2025 8:00 AM CDT Office Visit [facility] [address] [place] [address] Caren Kwok, SAFETY SPECIALIST, FORMING MACHINE ADJUSTER [address] [place] [address] 06/10/2025 10:00 AM ROOTER OPERATOR [facility] [address] [place] [address] Negar Vasquez, PAC [address] [place] [address] Discharge Disposition: Discharged to home or Selfcare documented as of this encounter Visit Diagnoses Not on filedocumented in this encounter Additional Health Concerns Assessment Noted Time PHQ-9 Depression Total Score: 0 01/14/20 11:14 AM CDT documented as of this encounter Care Teams Barber [employer] Beauty Shop Manager Relationship Specialty Start Date End Date Reji Barton MD [address] [place] [address] PCP - General Family Medicine 02/19/24 Eddi Miller MD [address] [place] [address] Consulting Physician Colon and Rectal Surgery 06/22/24 Bridger Gilliam MD 2 [facility] [address] [place] [address] Consulting Physician General Surgery 12/30/24 documented as of this encounter
--- OUTSIDE RECORDS SUMMARY | 2025-04-06 17:17 | XMS_ITS | Clinical Summary ---
Author Organization [facility] Address [address] [place] [address] Phone Care Team Providers Care Apartment Leasing Consultant Name Role Phone Reji Barton MD Primary Care Provider [phone] Eddi Miller MD Unavailable Bridger Gilliam MD Unavailable [phone] Allergies No known active allergies Medications metoprolol Succinate (TOPROL-XL) 50 MG TABLET SR 24 HR Take 1 Tablet by mouth daily. 90 Tablet 3 4 Active hydrOXYzine (VISTARIL) 25 MG Capsule Take 1 Capsule by mouth 3 times daily as needed for Anxiety. 20 Capsule 5 Active traMADol (ULTRAM) 50 MG TabletIndicatio ns:Chronic back pain greater than 3 months duration Take 1 Tablet by mouth 2 times daily as needed for Moderate or more severe pain. 60 Tablet 5 Active folic acid (FOLVITE) 1 MG TabletIndicatio ns:Folate Deficiency Anemia Take 1 Tablet by mouth daily. 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 01/19/2025 Elevated lipase 01/13/2025 Hypomagnesemia 01/13/2025 Alcohol-induced acute pancre atitis without infection or necrosis 01/13/2025 Nausea 12/31/2024 Generalized abdominal pain 12/31/2024 Elevated liver enzymes 09/24/2024 Chest pain 09/24/2024 Anemia, normocytic normochromic 09/24/2024 Bleeding hemorrhoid 06/21/2024 Family history of ankylosing spondylitis 024 HLA B27 (HLA B27 positive) 06/21/2024 Chronic midline low back pain without sciatica 1 08/21/2023 Chronic pain syndrome 06/11/2024 Alcohol abuse 06/11/2024 Chronic back pain greater than 3 months duration 02/19/2024 Tobacco abuse 02/19/2024 Diarrhea 02/19/2024 Irritable bowel syndrome with diarrhea Eczema, allergic 02/19/2024 Elevated blood pressure reading 02/19/2024 Anxiety 02/19/2024 Hyperglycemia 02/19/2024 Encounters Date Type Department Care Team Description 04/05/2025 Refill [facility] - [facility] [address] [place] [address] Reji Barton MD Medication Refill 04/05/2025 Results Follow-Up [facility] [address] [place] [address] Negar Vasquez December, PAC FERRITIN, IRON,TRANSFERN,CHARLENE C.TIBC,%SAT, CBC WITH AUTO DIFFERENTIAL, Additional followed-up results: 2 04/05/2025 Travel 03/22/2025 10:00 AM CDT Clinical Support [facility] [address] [place] [address] Negar Vasquez December, PAC Iron deficiency anemia due to sideropenic dysphagia (Primary Dx) Discharge Disposition: Discharged to home or Selfcare 03/22/2025 Travel 03/18/2025 10:00 AM CDT Clinical Support [facility] [address] [place] [address] Negar Vasquez December, PAC Iron deficiency anemia due to sideropenic dysphagia (Primary Dx) Discharge Disposition: Discharged to home or Selfcare 03/18/2025 Travel 03/15/2025 10:00 AM CDT Clinical Support [facility] [address] [place] [address] Negar Vasquez December, PAC Iron deficiency anemia due to sideropenic dysphagia (Primary Dx) Discharge Disposition: Discharged to home or Selfcare 03/15/2025 Travel 03/12/2025 10:00 AM CDT Clinical Support [facility] [address] [place] [address] Negar Vasquez December, [facility] Iron deficiency anemia due to sideropenic dysphagia (Primary Dx) Discharge Disposition: Discharged to home or Selfcare 03/12/2025 Travel 03/09/2025 9:00 AM CDT Office Visit [facility] [address] [place] [address] Negar Vasquez December, PAC Iron deficiency anemia due to sideropenic dysphagia (Primary Dx); Alcohol abuse; Tobacco abuse Discharge Disposition: Discharged to home or Selfcare 03/09/2025 Travel 03/02/2025 Results Follow-Up [facility] [address] [place] [address] Negar Vasquez Hilda, PAC RETICULOCYTE COUNT (RETIC), CBC WITH AUTO DIFFERENTIAL, FOLIC ACID (FOLATE), Additional followed-up results: 7 03/02/2025 Travel 03/01/2025 Results Follow-Up [facility] [address] [place] [address] Reji Barton MD URINE DRUG SCREEN 02/22/2025 10:15 AM CDT Office Visit [facility] [address] [place] [address] Reji Barton MD Rectal bleeding (Primary Dx); Chronic back pain greater than 3 months duration; Therapeutic drug monitoring Discharge Disposition: Discharged to home or Selfcare 02/22/2025 Travel 02/03/2025 Telephone [facility] [address] [place] [address] Reji Barton MD 01/31/2025 [facility]ill [facility] [place] [address] Reji Barton MD Medication Refill 01/27/2025 Results Follow-Up [facility] Adult Pediatric Inpatient Virtual [address] [place] [address] Bridger Gilliam MD Pathology Surgical 01/26/2025 7:22 AM CDT Anesthesia Event [facility] Periop [address] [place] [address] Del Bauer APRN, CARBON PAPER MACHINE OPERATOR 01/26/2025 7:00 AM CDT - 01/26/2025 8:00 AM CDT Surgery [facility] Periop [address] [place] [address] Bridger Gilliam MD EGD-GASTRITIS, DUODENAL BULB BIOPSY, PRE PYLORIC ANTRUM BIOPSY, GASTRIC BODY BIOPSY, GASTRIC FUNDUS BIOPSY, GE JUNCTION BIOPSY, ESOPHAGUS AT 30CM BIOPSY 01/26/2025 6:50 AM CDT Ancillary Procedure [facility] Main [address] [place] [address] Bridger Gilliam MD 01/26/2025 6:45 AM CDT Ancillary Procedure [facility] Main [address] [place] [address] Bridger Gilliam MD 01/26/2025 6:40 AM CDT - 01/26/2025 9:04 AM CDT Hospital Encounter [facility] Preop/Pacu II [address] [place] [address] Bridger Gilliam MD Discharge Disposition: Discharged to home or Selfcare 01/26/2025 Travel 01/22/2025 Travel 01/22/2025 Telephone [facility] [address] [place] [address] Reji Barton MD Form Completion 01/20/2025 Telephone [facility] [address] [place] [address] Reji Barton MD Letter for School/Work 01/19/2025 8:20 AM CDT Initial Consult [facility] On[facility] Services [address] [place] [address] Negar Vasquez Hilda, [facility] Iron deficiency anemia due to sideropenic dysphagia (Primary Dx); Alcohol abuse; Tobacco abuse; Hepatic steatosis; Hiatal hernia Discharge Disposition: Discharged to home or Selfcare 01/19/2025 Travel 01/14/2025 Results Follow-Up [facility] [address] [place] [address] Reji Barton MD CMP (COMPREHENSIVE METABOLIC PANEL), LIPASE, IRON,TRANSFERN,CHARLENE C.TIBC,%SAT, Additional followed-up results: 6 01/13/2025 11:15 AM CDT Office Visit [facility] [address] [place] [address] Reji Barton MD Alcohol-induced acute pancreatitis without infection or necrosis (Primary Dx); Anemia, normocytic normochromic; Elevated lipase; Hypomagnesemia Discharge Disposition: Discharged to home or Selfcare 01/13/2025 Telephone [facility] [address] [place] [address] Reji Barton MD 01/13/2025 Travel 01/11/2025 Documentation Only [facility] [address] [place] [address] Reji Barton MD 01/07/2025 [facility] [place] [address] Bridger Gilliam MD Procedure; Appointment; Abdominal Pain 01/06/2025 8:16 PM CDT - 01/06/2025 11:47 PM CDT [facility] [address] [place] [address] Justin Oropeza MD Acute pancreatitis without infection or necrosis, unspecified pancreatitis type Discharge Disposition: Discharged to home or Selfcare 01/06/2025 Telephone [facility] [address] [place] [address] Reji Barton MD 01/06/2025 Travel 01/04/2025 [facility] [place] [address] Bridger Gilliam MD 01/04/2025 Telephone [facility] [address] [place] [address] Reji Barton MD Follow-up; Letter for School/Work from Last 3 Months Immunizations Immunization Administration Dates Next Due DTP Vaccine 03/23/1988, 4,03/19/1983,1982,1982 Hepatitis B Vaccine, Pediatric/adolescent 05/16/1999,10/26/1998,08/26/1998 Hib Vaccine,unspecified Formulation 06/14/1987 MMR Vaccine 12/28/1983 OPV 03/23/1988, 4,03/19/1983,1982,1982 TD VACCINE 08/26/1998 TDAP Vaccine 01/14/2022 Family History Medical History Relation Name Comments No Known Problems Brother Anxiety disorder Daughter Arthritis Father Congestive Heart Failure Father No Known Problems Maternal Grandfather No Known Problems Maternal Grandmother Aneurysm Mother Brain Cancer Mother Heart Disease Mother Other-comment Mother failure to thr adilia No Known Problems Paternal Grandfather Diabetes Paternal Grandmother Cancer Paternal Uncle Arthritis Sister Heart Disease Sister No Known Problems Son Relation Name Status Comments Brother Alive Daughter Alive Father Maternal Grandfather Maternal Grandmother Mother Paternal Grandfather Paternal Grandmother Paternal Uncle Sister Alive Son Alive Social History Tobacco Use Types Packs/Day Years Used Date Smoking Tobacco: Every Day Cigarettes 1.5 31.7 Started: 1993 Smokeless Tobacco: Never Tobacco Cessation:Ready to Q uit: Not Asked; Counseling Given: Not Answered Alcohol Use Standard Drinks/Week Comments Yes 70 (1 standard drink = 0.6 oz pu re alcohol) [employer] Answer Date Recorded In the past 12 months has [employer], gas, oil, or water [employer] threatened to shut off services in your home? No 02/19/2024 Social Connection and Isolation Panel Answer Date Recorded In a typical week, how many times do you talk on the phone with family, friends, or neighbors? More than three times a week 02/19/2024 How often do you get togethe r with friends or relatives? Twice a week 02/19/2024 How often do you attend [facility] or yarsani services? Never 02/19/2024 Do you belong to any clubs o r organizations such as holiness groups, unions, fraternal or athletic groups, or [...] Total Score - Questions 1-9 0 12/27 [facility] - Occupational Stress Questionnaire Answer Date [...] any time in the past 12 m [facility], were you homeless or living in a nursing home (including now)? No 02/19/2024 Sexually Active Control Partners Comments Yes Female Sex and Gender Information Value Date Recorded Sex Assigned at Not on file Legal Sex Male 11:51 PM CDT Gender Identity Not on file Sexual Orientation Not on file Last Filed Vital Signs Vital Sign Reading Time Taken Comments Blood Pressure 167/107 03/22/2025 10:10 AM CDT pt reports blood pressure medication taken, no symptoms currently, this is his normal due to anxiety/stomach issues Pulse 85 03/22/2025 10:10 AM CDT Temperature 36.6 C (97.9 F) 03/22/2025 10:10 AM CDT Respiratory Rate 16 03/22/2025 10:1 0 AM CDT Oxygen Saturation 100% 03/22/2025 10: 10 AM CDT Inhaled Oxygen Concentration - - Weight 61.5 kg (135 lb 8 oz) 03/09/2025 9:04 AM CDT Height 165.1 cm (5' 5) 03/09/2025 9:04 AM CDT Body Mass Index 22.55 03/09/2025 9:04 AM CDT Plan of Treatment Upcoming Encounters Date Type Department Care Team (Late st Contact Info) Description 04/12/2025 10:00 AM CDT [facility] [facility] [address] [place] [address] Discharge Disposition: Discharged to home or Selfcare 05/07/2025 8:00 AM CDT Office Visit [facility] - [facility] Medicine [facility] [address] [place] [address] Caren Kwok, EDUCATIONAL GUIDANCE COUNSELOR, BURRITO MAKER [address] [place] [address] 06/10/2025 10:00 AM MANAGEMENT LECTURER Office Visit [facility] [facility] [address] [place] [address] Negar Vasquez PAC [address] [place] [address] Discharge Disposition: Discharged to home or Selfcare Health Maintenance Due Date Last Done Comments Hepatitis C Virus (HCV) Screening 1982 Pneumococcal Immunization Combined (1 of 2 - PCV) 2001 Human Papillomavirus (HPV) Immunization (1 - 3-dose SCDM series) 2009 Influenza Immunization (#1) 2025 SARS-COV-2 Immunization ( season) 2025 Immunochemical Fecal Occult Blood 2027 11/11/2024 Colonoscopy 01/27/2028 01/26/2025 Colorectal Cancer Screening 01/27/2028 DTaP/Tdap/Td Immunization (7 - Td or Tdap) 01/15/2032 01/14/2022, 08/26/1998, 03/23/1988, Additional history exists Td Immunization Every 10 Years (Adults With 1 Tdap) 01/15/2032 01/14/2022, 08/26/1998 Respiratory Syncytial Virus (RSV) Immunization (Adult) (1 - 1-dose 75+ series) 2057 Hepatitis B Immunization Completed 999, 10/26/1998, 08/26/1998 Meningococcal Immunization (ACWY) Aged Out No longer eligible based on patient's age to complete this topic Rotavirus Immunization Aged Out No lo nger eligible based on patient's age to complete this topic Procedures Procedure Name Priority Date/Time Associated Diagnosis Comments CBC WITH AUTO DIFFERENTIAL Routine 04/05 10:21 AM CDT Iron deficiency anemia due to sideropenic dysphagia FOLIC ACID (FOLATE) Routine 04/05/2025 10:21 AM CDT Iron deficiency anemia due to sideropenic dysphagia IRON,TRANSFERN,CALC.TIBC,%SAT Routine 10:21 AM CDT Iron deficiency anemia due to sideropenic dysphagia FERRITIN Routine 04/05/2025 10:21 AM CDT Iron deficiency anemia due to sideropenic dysphagia VITAMIN B12 Routine 04/05/2025 10:21 AM CDT Iron deficiency anemia due to sideropenic dysphagia COMPLETE BLOOD COUNT (CBC) WITH DIFF Routine 04/05/2025 10:21 AM CDT Iron deficiency anemia due to sideropenic dysphagia CBC WITH AUTO DIFFERENTIAL Routine 03/02 3:08 PM CDT Iron deficiency anemia due to sideropenic dysphagia IRON,TRANSFERN,CALC.TIBC,%SAT Routine 3:08 PM CDT Iron deficiency anemia due to sideropenic dysphagia IMMUNOFIXATION W/ ELECTROPHORESIS SERUM Routine 03/02/2025 3:08 PM CDT Iron deficiency anemia due to sideropenic dysphagia FREE KAPPA & LAMBDA LIGHT CHAINS SERUM Routine 03/02/2025 3:08 PM CDT Iron deficiency anemia due to sideropenic dysphagia LACTATE DEHYDROGENASE (LD) Routine 03/02 3:08 PM CDT Iron deficiency anemia due to sideropenic dysphagia RETICULOCYTE COUNT (RETIC) Routine 03/02 3:08 PM CDT Iron deficiency anemia due to sideropenic dysphagia VITAMIN B12 Routine 03/02/2025 3:08 PM CDT Iron deficiency anemia due to sideropenic dysphagia COMPLETE BLOOD COUNT (CBC) WITH DIFF Routine 03/02/2025 3:08 PM CDT Iron deficiency anemia due to sideropenic dysphagia CMP (COMPREHENSIVE METABOLIC PANEL) Routine 03/02/2025 3:08 PM CDT Iron deficiency anemia due to sideropenic dysphagia FERRITIN Routine 03/02/2025 3:08 PM CDT Iron deficiency anemia due to sideropenic dysphagia FOLIC ACID (FOLATE) Routine 03/02/2025 3:08 PM CDT Iron deficiency anemia due to sideropenic dysphagia URINE DRUG SCREEN Today 02/22/2025 Therapeutic drug monitoring PATHOLOGY SURGICAL Routine 01/26/2025 7:28 AM CDT COLON CA SCRN NOT HI RSK IND 07/2024 7:25 AM CDT EGD-GASTRITIS, DUODENAL BULB BIOPSY, PRE PYLORIC ANTRUM BIOPSY, GASTRIC BODY BIOPSY, GASTRIC FUNDUS BIOPSY, GE JUNCTION BIOPSY, ESOPHAGUS AT 30CM BIOPSYCOLONOSCO PY-NORMAL COLONOSCOPY Special Needs Dx NAUSEA COLORECTAL SCRN; HI RISK IND 07/2024 7:25 AM CDT EGD-GASTRITIS, DUODENAL BULB BIOPSY, PRE PYLORIC ANTRUM BIOPSY, GASTRIC BODY BIOPSY, GASTRIC FUNDUS BIOPSY, GE JUNCTION BIOPSY, ESOPHAGUS AT 30CM BIOPSYCOLONOSCO PY-NORMAL COLONOSCOPY Special Needs Dx NAUSEA [place] COLONOSCOPY FLX DX W/DENNY J SPEC WHEN PFRMD 01/26/2025 7:25 AM CDT EGD-GASTRITIS, DUODENAL BULB BIOPSY, PRE PYLORIC ANTRUM BIOPSY, GASTRIC BODY BIOPSY, GASTRIC FUNDUS BIOPSY, GE JUNCTION BIOPSY, ESOPHAGUS AT 30CM BIOPSYCOLONOSCO PY-NORMAL COLONOSCOPY Special Needs Dx NAUSEA IL ESOPHAGOGASTRODUODENOSCOP Y TRANSORAL DIAGNOSTIC 01/26/2025 7:25 AM CDT EGD-GASTRITIS, DUODENAL BULB BIOPSY, PRE PYLORIC ANTRUM BIOPSY, GASTRIC BODY BIOPSY, GASTRIC FUNDUS BIOPSY, GE JUNCTION BIOPSY, ESOPHAGUS AT 30CM BIOPSYCOLONOSCO PY-NORMAL COLONOSCOPY Special Needs Dx NAUSEA [place] EGD FLEXIBLE TRANSNASAL D X W/COLLJ SPEC BR/WA 01/26/2025 7:25 AM CDT EGD-GASTRITIS, DUODENAL BULB BIOPSY, PRE PYLORIC ANTRUM BIOPSY, GASTRIC BODY BIOPSY, GASTRIC FUNDUS BIOPSY, GE JUNCTION BIOPSY, ESOPHAGUS AT 30CM BIOPSYCOLONOSCO PY-NORMAL COLONOSCOPY Special Needs Dx NAUSEA GI LAB IMAGING - EGD Routine 01/26/2025 6:42 AM CDT GI IMAGING - COLONOSCOPY Routine 025 6:42 AM CDT CBC WITH AUTO DIFFERENTIAL Today 01/13 11:54 AM CDT Anemia, normocytic normochromic MAGNESIUM (MG) Today 01/13/2025 11:54 AM CDT Hypomagnesemia VITAMIN B12 Today 01/13/2025 11:54 AM CDT Anemia, normocytic normochromic THIAMIN (VITAMIN B1), WHOLE BLOOD, [facility] Today 01/13/2025 11:54 AM CDT Alcohol-induced acute pancreatitis without infection or necrosis FOLIC ACID (FOLATE) Today 01/13/2025 11:54 AM CDT Anemia, normocytic normochromic FERRITIN Today 01/13/2025 11:54 AM CDT Anemia, normocytic normochromic IRON,TRANSFERN,CALC.TIBC,%SAT Today 11:54 AM CDT Anemia, normocytic normochromic COMPLETE BLOOD COUNT (CBC) WITH DIFF Today 01/13/2025 11:54 AM CDT Anemia, normocytic normochromic LIPASE Today 01/13/2025 11:54 AM CDT Alcohol-induced acute pancreatitis without infection or necrosis CMP (COMPREHENSIVE METABOLIC PANEL) Today 01/13/2025 11:54 AM CDT Alcohol-induced acute pancreatitis without infection or necrosis CT ABDOMEN PELVIS W/ CONTRAST Stat with Interpretation 01/06/2025 10:51 PM CDT CBC WITH AUTO DIFFERENTIAL STAT 01/06 8:20 PM CDT LIPASE STAT 01/06/2025 8:20 PM CDT MAGNESIUM (MG) STAT 01/06/2025 8:20 PM CDT CMP (COMPREHENSIVE METABOLIC PANEL) STAT 01/06/2025 8:20 PM CDT COMPLETE BLOOD COUNT (CBC) WITH DIFF STAT 01/06/2025 8:20 PM CDT STOOL, OCCULT BLOOD, DIAGNOSTIC, VIA GUAIAC STAT 11/11/2024 11:49 PM CDT from Last 3 Months or Most Recently Relevant to Health Maintenance Results * (ABNORMAL) IRON,TRANSFERN,CALC.TIBC,%SAT (04/05/2025 10:21 AM CDT) Only the most recent of3 resultswithin the time period is included. Pathologist [facility] IRON 28(L) 31 - 144 mcg/dL 04/05/2025 12:03 PM CDT [facility] TRANSFERRIN 266 174 - 364 mg/dL 04/05/2025 12:03 PM CDT [facility] TIBC, CALCULATED 333 261 - 462 mcg/dL 04/05/2025 12:03 PM CDT [facility] % SATURATION * 8(L) 15 - 62 % 04/05/2025 12:03 PM CDT [facility] Blood Venipuncture / Unknown 04/05/2025 10:21 AM CDT 04/05/2025 11:15 AM CDT Negar Vasquez PAC CHEMISTRY ORDERABLES Ruby l Result [facility] [address] [place] [address] * (ABNORMAL) CBC WITH AUTO DIFFERENTIAL (04/05/2025 10:21 AM CDT) Only the most recent of4 resultswithin the time period is included. [facility] WBC 5.52 4.00 - 12.00 10(3)/mcL 04/05/2025 11:59 AM CDT [facility] RBC 4.28(L) 4.40 - 5.80 10(6)/mcL 04/05/2025 11:59 AM CDT [facility] HEMOGLOBIN (HGB) 11.9(L) 13.0 - 16.5 g/dL 04/05/2025 11:59 AM CDT [facility] HEMATOCRIT (HCT) 39.1 38.0 - 50.0 % 04/05/2025 11:59 AM CDT [facility] MCV 91.4 82.0 - 96.0 fL 04/05/2025 11:59 AM CDT [facility] MCH 27.8 26.0 - 32.0 pg 04/05/2025 11:59 AM CDT [facility] MCHC 30.4(L) 31.0 - 36.0 g/dL 04/05/2025 11:59 AM CDT [facility] PLATELET COUNT 215 140 - 440 10(3)/mcL 04/05/2025 11:59 AM CDT [facility] RDW 22.5(H) 11.8 - 15.5 % 04/05/2025 11:59 AM CDT [facility] MPV 10.6 8.0 - 12.6 fL 04/05/2025 11:59 AM CDT [facility] NEUTROPHILS 63.3 40.0 - 68.0 % 04/05/2025 11:59 AM CDT [facility] LYMPHOCYTES 24.3 19.0 - 49.0 % 04/05/2025 11:59 AM CDT [facility] MONOCYTES 8.2 3.0 - 13.0 % 04/05/2025 11:59 AM CDT [facility] EOSINOPHILS 2.2 0.0 - 8.0 % 04/05/2025 11:59 AM CDT [facility] BASOPHILS 1.6(H) 0.0 - 1.0 % 04/05/2025 11:59 AM CDT [facility] IMMATURE GRANULOCYTE 0.4 0.0 - 0.4 % 04/05/2025 11:59 AM CDT [facility] ABSOLUTE NEUTROPHILS 3.50 1.40 - 5.30 10(3)/mcL 04/05/2025 11:59 AM CDT [facility] ABSOLUTE LYMPHOCYTES 1.34 0.90 - 3.30 10(3)/mcL 04/05/2025 11:59 AM CDT [facility] ABSOLUTE MONOCYTES 0.45 0.10 - 0.90 10(3)/mcL 04/05/2025 11:59 AM CDT [facility] ABSOLUTE EOSINOPHIL 0.12 0.00 - 0.50 10(3)/mcL 04/05/2025 11:59 AM CDT [facility] ABSOLUTE BASOPHILS 0.09 0.00 - 0.10 10(3)/mcL 04/05/2025 11:59 AM CDT [facility] ABSOLUTE IMMATURE GRANULOCYTE 0.02 0.00 - 0.03 10 (3) mcL. 04/05/2025 11:59 AM CDT [facility] NRBC PER 100 WBC 0 04/05/20 11:59 AM CDT [facility] RESULTS ARE CONSISTENT WITH PERIPHERAL SMEAR REVIEW Yes 04/05/2025 11:59 AM CDT [facility] RBC MORPHOLOGY CONSISTENT WITH INDICES Yes 04/05/2025 11:59 AM CDT [facility] POIKILOCYTOSIS 2+ 04/05/2025 11:59 AM CDT [facility] STOMATOCYTES Present 04/05/2025 11:59 AM CDT [facility] Blood Venipuncture / Unknown 04/05/2025 10:21 AM CDT 04/05/2025 11:17 AM CDT [facility] HEMATOLOGY ORDERABLES Fin al Result Performing Organization Address City/[facility]/ZIP Co de Phone Number [facility] [address] [place] [address] * VITAMIN B12 (04/05/2025 10:21 AM CDT) Only the most recent of3 resultswithin the time period is included. VITAMIN B12 397 213 - 816 pg/mL 04/05/2025 12:30 PM CDT [facility] Blood Venipuncture / Unknown 04/05/2025 10:21 AM CDT 04/05/2025 11:16 AM CDT [facility] CHEMISTRY ORDERABLES Ruby l Result [facility] [address] [place] [address] * (ABNORMAL) FOLIC ACID (FOLATE) (04/05/2025 10:21 AM CDT) Only the most recent of3 resultswithin the time period is included. Pathologist [facility] FOLATE 2.2(L) 7.0 - 31.4 ng/mL 04/05/2025 12:30 PM CDT [facility] IS THE PATIENT REQUIRED TO BE FASTING? No 04/05/2025 12:30 PM CDT [facility] Blood Venipuncture / Unknown 04/05/2025 10:21 AM CDT 04/05/2025 11:16 AM CDT [facility] PAC CHEMISTRY ORDERABLES Ruby l Result Performing Organization Address City/[facility]/ZIP Co de Phone Number [facility] [address] [place] [address] * FERRITIN (04/05/2025 10:21 AM CDT) Only the most recent of3 resultswithin the time period is included. [facility] FERRITIN 188 22 - 274 ng/mL 04/05/2025 12:20 PM CDT [facility] Blood Venipuncture / Unknown 04/05/2025 10:21 AM CDT 04/05/2025 11:15 AM CDT [facility] PAC CHEMISTRY ORDERABLES Ruby l Result [facility] [address] [place] [address] * (ABNORMAL) FREE KAPPA & LAMBDA LIGHT CHAINS SERUM (03/02/2025 3:08 PM CDT) [facility] Free Trilby Lt Chn 23.16(H) 3.30 - 19.40 mg/L 03/03/2025 9:05 AM CDT [facility] Free Lambda Lt Chn 19.59 5.71 - 26.30 mg/L 03/03/2025 9:05 AM CDT [facility] free anya whitehead ratio 1.18 0.26 - 1.65 03/03/2025 9:05 AM CDT [facility] Blood Venipuncture / Unknown 03/02/2025 3:08 PM CDT 03/02/2025 4:17 PM CDT [facility] PAC CHEMISTRY ORDERABLES Ruby l Result [facility] [address] [place] [address], [place] * RETICULOCYTE COUNT (RETIC) (03/02/2025 3:08 PM CDT) RETICULOCYTES 1.7 0.5 - 2.0 % 03/02/2025 4:21 PM CDT [facility] Blood Venipuncture / Unknown 03/02/2025 3:08 PM CDT 03/02/2025 4:16 PM CDT [facility] PAC HEMATOLOGY ORDERABLES Fin al Result [facility] [place] [address] * LACTATE DEHYDROGENASE (LD) (03/02/2025 3:08 PM CDT) LDH 174 125 - 220 U/L 03/02/2025 4:58 PM CDT [facility] Blood Venipuncture / Unknown 03/02/2025 3:08 PM CDT 03/02/2025 4:17 PM CDT [facility] PAC CHEMISTRY ORDERABLES Ruby l Result [facility] [address] [place] [address] * (ABNORMAL) IMMUNOFIXATION W/ ELECTROPHORESIS SERUM (03/02/2025 3:08 PM CDT) TOTAL PROTEIN 6.4 6.0 - 8.0 g/dL 03/04/2025 2:13 PM CDT [facility] % ALBUMIN 55.2(L) 55.8 - 66.7 % 03/04/2025 2:13 PM CDT [facility] ALBUMIN SERUM 3.5 2.5 - 5.4 g/dL 03/04/2025 2:13 PM CDT [facility] % ALPHA 1 GLOBULIN 3.4 2.9 - 4.9 % 03/04/2025 2:13 PM CDT [facility] ALPHA 1 0.2 0.2 - 0.4 g/dL 03/04/2025 2:13 PM CDT [facility] % ALPHA 2 GLOBULIN 13.0(H) 7.1 - 11.8 % 03/04/2025 2:13 PM CDT [facility] ALPHA 2 0.8 0.5 - 1.0 g/dL 03/04/2025 2:13 PM CDT [facility] % BETA 15.3(H) 8.4 - 13.1 % 03/04/2025 2:13 PM CDT [facility] BETA-GLOBULIN 1.0 0.5 - 1.1 g/dL 03/04/2025 2:13 PM CDT [facility] % GAMMA GLOBULIN 13.0 11.1 - 18.8 % 03/04/2025 2:13 PM CDT [facility] GAMMA 0.8 0.7 - 1.5 g/dL 03/04/2025 2:13 PM CDT [facility] IMMUNOGLOBULIN G 832 540 - 1,822 mg/dL 03/04/2025 2:13 PM CDT [facility] IMMUNOGLOBULIN A 279 63 - 484 mg/dL 03/04/2025 2:13 PM CDT [facility] IMMUNOGLOBULIN M 62 22 - 240 mg/dL 03/04/2025 2:13 PM CDT [facility] INTERPRETATION SERUM No abnormal protein band is detected by serum protein electrophoresis. Serum immunofixation electrophoresis is negative for monoclonal immunoglobulins. Reviewed by Mamie Fall, Ph.D. 03/04/2025 2:13 PM CDT [facility] A/G RATIO, SERUM 1.2 03/04/20 2:13 PM CDT [facility] Blood Venipuncture / Unknown 03/02/2025 3:08 PM CDT 03/02/2025 4:17 PM CDT Narrative [facility] - 03/04/2025 2:13 PM CDT Reviewed by Angel Zuniga M.D. Negar Vasquez PAC CHEMISTRY ORDERABLES Ruby martinez Result [facility] [address] [place] [address], * (ABNORMAL) CMP (COMPREHENSIVE METABOLIC PANEL) (03/02/2025 3:08 PM CDT) Only the most recent of3 resultswithin the time period is included. SODIUM 138 136 - 145 mmol/L 03/02/2025 4:58 PM CDT [facility] POTASSIUM 4.0 3.5 - 5.1 mmol/L 03/02/2025 4:58 PM CDT [facility] CHLORIDE 104 98 - 107 mmol/L 03/02/2025 4:58 PM CDT [facility] CO2, VENOUS 25 22 - 30 mmol/L 03/02/2025 4:58 PM CDT [facility] ANION GAP 13.0 <18.0 mmol/L 03/02/2025 4:58 PM CDT [facility] GLUCOSE 84 70 - 99 mg/dL 03/02/2025 4:58 PM CDT [facility] BUN 10 9 - 21 mg/dL 03/02/2025 4:58 PM CDT [facility] CREATININE, BLOOD 1.04 0.70 - 1.30 mg/dL 03/02/2025 4:58 PM CDT [facility] BUN/CREATININE RATIO 10(L) 12 - 20 ratio 03/02/2025 4:58 PM CDT [facility] TOTAL PROTEIN 6.9 6.0 - 8.0 g/dL 03/02/2025 4:58 PM CDT [facility] ALBUMIN 4.0 3.5 - 5.0 g/dL 03/02/2025 4:58 PM CDT [facility] A/G RATIO 1.4 1.0 - 2.2 03/02/2025 4:58 PM T [facility] CALCIUM 8.6(L) 8.7 - 10.5 mg/dL 03/02/2025 4:58 PM CDT [facility] T BILI 0.6 0.2 - 1.2 mg/dL 03/02/2025 4:58 PM T [facility] SGOT (AST) 46(H) <43 U/L 03/02/2025 4:58 PM T [facility] SGPT (ALT) 23 <56 U/L 03/02/2025 4:[address] [facility] ALKALINE PHOSPHATASE 114 40 - 150 U/L 03/02/2025 4:[address] [facility] IS THE PATIENT REQUIRED TO BE FASTING? No 03/02/2025 4:58 PM T [facility] GFR, ESTIMATED >60 >=60 03/02/2025 4:58 PM T [facility] Comment: Creatinine Clearance is the preferred criteria for selecting drug dose adjustments in renally impaired patients. The GFR is provided as additional pertinent clinical information. GFR is reported in mL/min/1.73 sq m. Calculation based on the Chronic Kidney Disease Epidemiology Collaboration (CKD- EPI) equation refit without adjustment for race. GFR, EST. >60 >=60 025 4:58 PM T [facility] GFR, EST. NONAFRICAN >60 >=60 03/02/2025 4:58 PM CDT [facility] Blood Venipuncture / Unknown 03/02/2025 3:08 PM CDT 03/02/2025 4:17 PM CDT Negar Vasquez PAC CHEMISTRY ORDERABLES Ruby l Result [facility] [address] [place] [address] * URINE DRUG SCREEN (02/22/2025) Urine 02/22/2025 Reji Barton MD URINE ORDERABLES Final Re sult * Pathology Surgical (01/26/2025 7:28 AM CDT) Case Report Surgical Pathology Report Case: [id number] Authorizing Provider: Bridger Gilliam MD Collected: 01/26/2025 07:28 AM Ordering Location: [facility] Received: 01/26/2025 10:24 AM [facility] Lab Main Pathologist: Mateo Dumont MD PhD Specimens: A) - Duodenum, DUODENAL BULB BIOPSY B) - Stomach, PRE PYLORIC ANTRUM BIOPSY C) - Stomach, GASTRIC BODY BIOPSY D) - Stomach, GASTRIC FUNDUS BIOPSY E) - GE Junction, GE JUNCTION BIOPSY F) - Esophagus, ESOPHAGUS AT 30CM BIOPSY 01/27/2025 9:14 AM CDT [facility] FINAL DIAGNOSIS A. Duodenal bulb biopsy: - Duodenal mucosa, negative for diagnostic abnormalities B. Pre pyloric antrum biopsy: - Gastric mucosa with focal mild chronic inflammation - Negative for acute inflammation or H. pylori by H&E stain C. Gastric body biopsy: - Gastric mucosa with focal mild chronic inflammation - Negative for acute inflammation or H. pylori by H&E stain D. Gastric fundus biopsy: - Gastric mucosa with focal mild chronic inflammation - Negative for acute inflammation or H. pylori by H&E stain E. GE junction biopsy: - Consistent with chronic gastritis with papillary hyperplasia and intestinal metaplasia - Negative for dysplasia or malignancy F. Esophagus at 30 cm biopsy: - Esophageal squamous epithelium with very focal scant inflammatory infiltration - Negative for eosinophils, dysplasia, or malignancy 01/27/2025 9:14 AM CDT [facility] at 0914 CDT Pre-Operative Diagnosis NAUSEA 01/27/2025 9:14 AM CDT [facility] Gross Description A. DUODENAL BULB BIOPSY The specimen presents in 6 formalin container for gross and microscopic examination labeled with the patient's name, Gabe Faulkner. Specimen A is designated as duodenal bulb biopsy. The specimen consists of 2 hui-pink pieces of tissue measuring 0.2-0.3 cm in greatest dimension. The specimen is entirely submitted in cassette A1. AM B. PRE PYLORIC ANTRUM BIOPSY Specimen B is designated as pre pyloric antrum biopsy. The specimen consists of 1 hui-pink piece of tissue measuring 0.3 cm in greatest dimension. The specimen is entirely submitted in cassette B1. AM C. GASTRIC BODY BIOPSY Specimen C is designated as gastric body biopsy. The specimen consists of 1 hui-pink piece of tissue measuring 0.3 cm in greatest dimension. The specimen is entirely submitted in cassette C1. AM D. GASTRIC FUNDUS BIOPSY Specimen D is designated as gastric fundus biopsy. The specimen consists of 1 hui-pink piece of tissue measuring 0.5 in greatest dimension. The specimen is entirely submitted in cassette D1. AM E. GE JUNCTION BIOPSY Specimen E is designated as GE junction biopsy. The specimen consists of 1 hui-white piece of tissue measuring 0.2 cm in greatest dimension. The specimen is entirely submitted in cassette E1. AM F. ESOPHAGUS AT 30CM BIOPSY Specimen F is designated as esophagus at 30 cm biopsy. The specimen consists of 1 hui-white piece of tissue measuring 0.4 cm in greatest dimension. The specimen is entirely submitted in cassette F1. AM Total time of formalin fixation:14 hours and 18 minutes 01/27/2025 9:14 AM CDT [facility] Microscopic Description Microscopic examination was performed which supports the final diagnosis. All control tissues stained appropriately. 01/27/2025 9:14 AM T [facility] Tissue DUODENAL STRUCTURE / Unknown 01/26/2025 7:28 AM CDT 01/26/2025 10:24 AM CDT Tissue specimen (specimen) STOMACH STRUCTURE / Unknown 01/26/2025 7:30 AM CDT 01/26/2025 10:24 AM CDT Tissue specimen (specimen) STOMACH STRUCTURE / Unknown 01/26/2025 7:31 AM CDT 01/26/2025 10:24 AM CDT Tissue specimen (specimen) STOMACH STRUCTURE / Unknown 01/26/2025 7:32 AM CDT 01/26/2025 10:24 AM CDT Tissue specimen (specimen) CARDIOESOPHAGEAL JUNCTION STRUCTURE / Unknown 01/26/2025 7:33 AM CDT 01/26/2025 10:24 AM CDT Tissue specimen (specimen) ESOPHAGEAL STRUCTURE / Unknown 01/26/2025 7:37 AM CDT 01/26/2025 10:24 AM CDT Bridger Gilliam MD PATHOLOGY/CYTOLOGY ORDERAB LES Final Result [facility] [address] [place] [address] * GI LAB IMAGING - EGD (01/26/2025 6:42 AM CDT) Bridger Gilliam MD [facility] DIAGNOSTIC ORDERABLES Final Result * GI IMAGING - COLONOSCOPY (01/26/2025 6:42 AM CDT) Bridger Gilliam MD [facility] DIAGNOSTIC ORDERABLES Final Result * THIAMIN (VITAMIN B1), WHOLE BLOOD, ORTIZ [facility] (01/13/2025 11:54 AM CDT) THIAMIN (VITAMIN B1) 87 70 - 180 nmol/L 01/16/2025 6:24 PM CDT [facility] Comment: ADDITIONAL INFORMATION This test was developed and its performance characteristics determined by [facility] in a manner consistent with CLIA requirements. This test has not been cleared or approved by the U.S. Food and Drug Administration. Test Performed by: [facility] [address] [place] [address] Crack Off Person: Stacie Hernández Ph.D.; CLIA# [id number] Blood Venipuncture / Unknown 01/13/2025 11:54 AM CDT 01/13/2025 1:22 PM CDT Reji Barton MD LAB SEND OUTS Final Res ult [facility] US * MAGNESIUM (MG) (01/13/2025 11:54 AM CDT) Only the most recent of2 resultswithin the time period is included. MAGNESIUM 1.9 1.6 - 2.6 mg/dL 01/13/2025 1:54 PM CDT [facility] Blood Venipuncture / Unknown 01/13/2025 11:54 AM CDT 01/13/2025 1:22 PM CDT Reji Barton MD CHEMISTRY ORDERABLES Ruby l Result Performing Organization Address City/[facility]/ZIP Co de Phone Number [facility] [address] [place] [address] * LIPASE (01/13/2025 11:54 AM CDT) Only the most recent of2 resultswithin the time period is included. LIPASE 26 8 - 78 U/L 01/13/2025 1:54 PM CDT [facility] Blood Venipuncture / Unknown 01/13/2025 11:54 AM CDT 01/13/2025 1:22 PM CDT Reji Barton MD CHEMISTRY ORDERABLES Ruby l Result [facility] [address] [place] [address] * CT ABDOMEN PELVIS W/ CONTRAST (01/06/2025 10:51 PM CDT) Anatomical Region Laterality Modality Abdomen N/A Computed Tomogra phy 01/06/2025 11:1 2 PM CDT Impressions 01/06/2025 11:15 PM CDT IMPRESSION: 1. Inflammatory changes surrounding the pancreatic head and 2nd portion of the duodenum may represent acute pancreatitis or duodenitis. Recommend correlation with serum lipase. 2. Collapse versus thickening of the distal descending and sigmoid colon may represent colitis of infectious or inflammatory etiology. 3. Extensive diverticulosis of the sigmoid colon without evidence of acute diverticulitis. 4. Diffuse hepatic steatosis. 5. Small hiatal hernia. 6. Moderate atherosclerosis of the aorta. 7. Circumferential wall thickening of the bladder out of proportion to the degree of collapse may represent cystitis. Recommend correlation with urinalysis. Narrative 01/06/2025 11:15 PM CDT EXAM DESCRIPTION: CT ABDOMEN PELVIS W/ CONTRAST REASON FOR STUDY: c/o generalized abdominal pain/discomfort with N/V/D x 2 days. HX: Chronic abdominal pain, GERD, IBS, hemorrhoid, Kidney stone TECHNIQUE: CT scan of the abdomen and pelvis performed with intravenous and without oral contrast using helical scanning technique with dynamic intravenous contrast injection. Reconstructed coronal and sagittal MPR images reviewed. All images stored on PACS. Automated exposure control was used as a dose optimization technique for this examination. CONTRAST TYPE/DOSE: 100mL of IOPAMIDOL 76 % IV SOLN injected via Intravenous COMPARISON: Chest x-ray of November 12, 2024. FINDINGS: LOWER CHEST: The lung bases are clear. There is a small hiatal hernia. LIVER: There is diffuse decreased attenuation of the liver consistent with diffuse hepatic steatosis. GALLBLADDER: No stones identified. Normal wall. No evidence of pericholecystic fluid. BILE DUCTS: PANCREAS: The pancreatic parenchyma appears unremarkable. There is stranding and a small amount of confluent fluid surrounding the pancreatic head and adjacent duodenum. SPLEEN: Normal size. No focal lesions. ADRENALS: Normal. KIDNEYS/URINARY TRACT: There is a 1.8 cm intermediate density cyst in the superior pole of the right kidney, present dating back to 2011. There is a 1 cm hypodensity in the inferior pole of the right kidney, too small to be accurately characterized by CT. The renal parenchyma is otherwise unremarkable. There are no stones visualized. No hydronephrosis or hydroureter. The bladder is collapsed with circumferential wall thickening out of proportion to the degree of collapse measuring up to 1.3 cm in the area of greatest thickness. VASCULATURE: There is moderate atherosclerosis of the aorta. GI: There is a small hiatal hernia. The stomach appears otherwise normal. There is mild thickening seen of the 2nd portion of the duodenum with surrounding edema and a small amount of confluent fluid extending into Uriarte's pouch. The remainder of the small bowel appears unremarkable. There is extensive diverticulosis through out the sigmoid colon. There is collapse versus thickening of the colon seen of the distal descending and sigmoid colon. The appendix is normal. PERITONEUM/MESENTERY: There is trace fluid in Morison's pouch. There is no free air. LYMPH NODES: There are no enlarged lymph nodes seen by CT size criteria. REPRODUCTIVE: The prostate and seminal vesicles are unremarkable. MUSCULOSKELETAL: Mild multilevel degenerative changes are present in the spine. No acute bony abnormalities are seen. OTHER: No other abnormality. THIS IS AN ELECTRONICALLY VERIFIED FINAL REPORT 01/06/2025 11:12 PM - Electronically signed by Allison Pro M.D. SN: SN Report ID: [id number] Reading Location: [place] [address] Procedure Note Allison Pro MD - 01/06/2025 EXAM DESCRIPTION: CT ABDOMEN PELVIS W/ CONTRAST REASON FOR STUDY: c/o generalized abdominal pain/discomfort with N/V/D x 2 days. HX: Chronic abdominal pain, GERD, IBS, hemorrhoid, Kidney stone TECHNIQUE: CT scan of the abdomen and pelvis performed with intravenous and without oral contrast using helical scanning technique with dynamic intravenous contrast injection. Reconstructed coronal and sagittal MPR images reviewed. All images stored on PACS. Automated exposure control was used as a dose optimization technique for this examination. CONTRAST TYPE/DOSE: 100mL of IOPAMIDOL 76 % IV SOLN injected via Intravenous COMPARISON: Chest x-ray of November 12, 2024. FINDINGS: LOWER CHEST: The lung bases are clear. There is a small hiatal hernia. LIVER: There is diffuse decreased attenuation of the liver consistent with diffuse hepatic steatosis. GALLBLADDER: No stones identified. Normal wall. No evidence of pericholecystic fluid. BILE DUCTS: PANCREAS: The pancreatic parenchyma appears unremarkable. There is stranding and a small amount of confluent fluid surrounding the pancreatic head and adjacent duodenum. SPLEEN: Normal size. No focal lesions. ADRENALS: Normal. KIDNEYS/URINARY TRACT: There is a 1.8 cm intermediate density cyst in the superior pole of the right kidney, present dating back to 2011. There is a 1 cm hypodensity in the inferior pole of the right kidney, too small to be accurately characterized by CT. The renal parenchyma is otherwise unremarkable. There are no stones visualized. No hydronephrosis or hydroureter. The bladder is collapsed with circumferential wall thickening out of proportion to the degree of collapse measuring up to 1.3 cm in the area of greatest thickness. VASCULATURE: There is moderate atherosclerosis of the aorta. GI: There is a small hiatal hernia. The stomach appears otherwise normal. There is mild thickening seen of the 2nd portion of the duodenum with surrounding edema and a small amount of confluent fluid extending into Uriarte's pouch. The remainder of the small bowel appears unremarkable. There is extensive diverticulosis through out the sigmoid colon. There is collapse versus thickening of the colon seen of the distal descending and sigmoid colon. The appendix is normal. PERITONEUM/MESENTERY: There is trace fluid in Morison's pouch. There is no free air. LYMPH NODES: There are no enlarged lymph nodes seen by CT size criteria. REPRODUCTIVE: The prostate and seminal vesicles are unremarkable. MUSCULOSKELETAL: Mild multilevel degenerative changes are present in the spine. No acute bony abnormalities are seen. OTHER: No other abnormality. THIS IS AN ELECTRONICALLY VERIFIED FINAL REPORT 01/06/2025 11:12 PM - Electronically signed by Allison Pro M.D. SN: Report ID: [id number] Reading Location: [id number] IMPRESSION: 1. Inflammatory changes surrounding the pancreatic head and 2nd portion of the duodenum may represent acute pancreatitis or duodenitis. Recommend correlation with serum lipase. 2. Collapse versus thickening of the distal descending and sigmoid colon may represent colitis of infectious or inflammatory etiology. 3. Extensive diverticulosis of the sigmoid colon without evidence of acute diverticulitis. 4. Diffuse hepatic steatosis. 5. Small hiatal hernia. 6. Moderate atherosclerosis of the aorta. 7. Circumferential wall thickening of the bladder out of proportion to the degree of collapse may represent cystitis. Recommend correlation with urinalysis. Justin Oropeza MD IMG CT ORDERABLES Final R esult * Stool, Occult Blood, Diagnostic (11/11/2024 11:49 PM CDT) OCCULT BLOOD DIAG Negative Negative 11/11/2024 11:59 PM CDT [facility] Stool STOOL SPECIMEN / Unknown Non-Phlebotomy Collection / Unknown 11/11/2024 11:49 PM CDT 11/11/2024 11:57 PM CDT Art Jin MD BODY FLUIDS & STOOLS ORDER PIPPA Final Result [facility] [place] [id number] from Last 3 Months or Most Recently Relevant to Health Maintenance Insurance Care Teams Apart[employer] Consultant Relationship Specialty Start Date End Date Reji Barton MD [address] [facility] [address] [address] PCP - General Family Medicine 02/19/24 Eddi Miller MD #[address] [facility] [address] [place] [address] Consulting Physician Colon and Rectal Surgery 06/22/24 Bridger Gilliam MD 2 [facility] [address] [place] [address] Consulting Physician General Surgery 12/30/24
--- OUTSIDE RECORDS SUMMARY | 2025-04-06 17:17 | XMS_ITS | Encounter Summary ---
Author Organization [facility] Address [address] [facility] [place] [address] Phone Care Team Providers Care Pulp Maker Name Role Phone Reji Barton MD Primary Care Provider [phone] Eddi Miller MD Unavailable Bridger Gilliam MD Unavailable [phone] Encounter Details Date Type Department Care Team (Late st Contact Info) Description 04/05/2025 Results Follow-Up [facility] On[facility] Services [address] [place] [address] Negar Vasquez Hilda, PAC [address] [place] [address] FERRITIN, IRON,TRANSFERN,CALC. TIBC,%SAT, CBC WITH AUTO DIFFERENTIAL, Additional followed-up results: 2 Social History Tobacco Use Types Packs/Day Years Used Date Smoking Tobacco: Every Day Cigarettes 1.5 31.7 Started: 1993 Smokeless Tobacco: Never Alcohol Use Standard Drinks/Week Comments Yes 70 (1 standard drink = 0.6 oz pu re alcohol) [facility] Utilities Answer Date Recorded In the [...] often do you attend chur ch or temple services? Never 02/19/2024 Do you belong to any clubs o r organizations such as christian groups, unions, fraternal or athletic groups, or [...] Total Score - Questions 1-9 0 12/27 [facility] - Occupational Stress [...] any time in the past 12 m [facility], were you homeless or living in a [facility]p (including now)? No 02/19/2024 Sexually Active Control Partners Comments Yes Female Sex and Gender Information Value Date Recorded Sex Assigned at Not on file Legal Sex Male 11:51 PM CDT Gender Identity Not on file Sexual Orientation Not on file documented as of this encounter Progress Notes * Negar Vasquez PAC - 04/05/2025 12:38 PM CDT Recommend folic acid, 1 mg, 1 tablet daily. Prescription was sent to pharmacy listed Recommend [id number] vitamin B12 supplement 1000 mcg daily in a chewable/ gummy/ liquid or sublingual form. Do not take an pill form as this is usually poorly absorbed. * Negar Vasquez PAC - 04/05/2025 12:23 PM CDT Please advise labs were drawn prematurely however they do demonstrate improvement in his CBC and ferritin level. His iron saturation is at 8%. I would recommend we go ahead and proceed with 2 more Venofer, 300 mg infusions and then recheck all levels at 6 weeks with an office visit 1 week after labs. The goal would be to get his iron saturation up and keep his ferritin level up as his body is responding well to therapy and replacing red blood cells and hemoglobin. documented in this encounter Plan of Treatment Upcoming Encounters Date Type Department Care Team (Late st Contact Info) Description 04/12/2025 10:00 AM CDT Clinical Support [facility] Oncology Services [address] [place] [address] Discharge Disposition: Discharged to home or Selfcare 05/07/2025 8:00 AM CDT Office Visit [facility] [address] [place] [address] Caren Kwok, PERFORMING ARTIST, CAREERS ADVISER [address] [place] [address] 06/10/2025 10:00 AM DYE BLENDER Office Visit [facility] Oncology Services [address] [place] [id number] [facility] [address] [place] [address] Discharge Disposition: Discharged to home or Selfcare documented as of this encounter Visit Diagnoses Diagnosis Folic acid deficiency- Primary Other B-complex deficiencies documented in this encounter Additional Health Concerns Assessment Noted Time PHQ-9 Depression Total Score: 0 01/14/20 25 11:14 AM CDT documented as of this encounter Care Teams Pulp Maker Relationship Specialty Start Date End Date Reji Barton MD [address] [facility] [address] [place] [address] PCP - General Family Medicine 02/19/24 Eddi Miller MD [address] [facility] [address] [place] [address] Consulting Physician Colon and Rectal Surgery 06/22/24 Bridger Gilliam MD 2 [facility] [address] [place] [address] Consulting Physician General Surgery 12/30/24 documented as of this encounter
== END 2025-04-06 17:18 | disposition home or self-care (01) ==
PROVIDERS: Emergency Provider Nurse Practitioner; PCP Family Medicine
DX: H00.022 Hordeolum internum right lower eyelid (principal); F17.210 Nicotine dependence, cigarettes, uncomplicated
CPT/HCPCS: 99203; G0463